=== PATIENT | male | born 1965 | race Caucasian/White ===

== ENCOUNTER 2020-09-06 11:03 | Emergency (ER) | payer OTHER, SELFPAY ==
[2020-09-06 11:04] VITALS: BP 202/141; PULSE 118; RESP 18; TEMP 36.6; O2SAT 95; BMI 37.6
[2020-09-06 11:30] VITALS: BP 158/85; PULSE 102; RESP 18; O2SAT 94
[2020-09-06 12:07] LABS: Glucose Urine UA 2+ (Normal); Protein Urine 1+ (Negative); Urine Appearance SL Hazy (CLEAR); Urine Color Yellow (Yellow); pH Urine 5 (5-7)
[2020-09-06 12:08] LABS: Add Urine Culture? Yes; Add Urine Microscopic? YES; Bacteria Urine 1+ /hpf; Bilirubin Urine Neg (Negative); Blood Urine 3+ (Negative); Ketones Urine Negative (Negative); Leukocyte Esterase Urine 2+ (Negative); Nitrate Urine Negative (Negative); Squamous Epithelial Cell Urine 0-4 /hpf (0-5); Urobilinogen Urine 1 mg/dL (Negative); WBC Urine >100 /hpf (0-5)
[2020-09-06] MEDS: ondansetron 2 mg/ML SDV 2 mL 4 MG IVP (12:09)
[2020-09-06 12:10] VITALS: RESP 18; O2SAT 95
[2020-09-06] MEDS: morphine 4 mg/mL SDV 1 mL IVP (12:10)
[2020-09-06] MEDS: LORazepam 2 mg/mL INJ 1 mL 1 MG IVP (12:10)
[2020-09-06] MEDS: cefTRIAXone 1,000 MG in sodium chloride 0.9% (plus) 50 ML 100 MG IV (13:23)
[2020-09-06] MEDS: phenazopyridine 100 mg Tablet 200 MG PO (13:23)
--- NOTE | 2020-09-06 14:20 | ED_ITS ---
HPI - Male Genitourinary General: Chief complaint: Urogenital-Male Stated complaint: Trouble Peeing Time Seen by Provider: 09/06/20 11:05 History of Present Illness: HPI Narrative: This patient is a 55-year-old male who presents today with difficulty urinating. He said this has been going on since yesterday evening. The last time he was able to urinate normally was yesterday afternoon. Since then he is just been dribbling. He has to really strain to try to get the urine out and he says is quite painful to do so. As soon as he urinates and walk away from the bathroom he feels like he has to go again. He has never had anything like this before but I see that he is on Flomax as one of his medications. He also has a history of hypertension and takes amlodipine and lisinopril hydrochlorothiazide. He has not taken them today. MD Complaint: dysuria Onset (ago): hour(s) (12) Duration: constant Location: abdomen Severity: moderate Quality: aching Associated symptoms: Reports no associated symptoms; Deny nausea or vomiting Review of Systems General: Reports: 10 or more systems reviewed and unremarkable except in HPI and below Const: Denies: fever(s), chills, fatigue or malaise Eyes: Denies: change in vision ENMT: Denies: odynophagia Card: Denies: chest pain or swelling of feet/ankles Resp: Denies: dyspnea, productive cough or non-productive cough GI: Denies: abdominal pain, nausea or vomiting : Reports: difficulty urinating, urinary frequency, urinary dribbling and oliguria; Denies: flank pain Musc: Denies: neck pain or back pain Skin/Breast: Denies: rash Neuro: Denies: headache(s), numbness in extremities or weakness in extremities Bay/Lymph: Denies: easy bruising or easy bleeding Physical Exam Const: COMMON NORMALS: no acute distress, patient oriented x3, no limitations and alert GENERAL APPEARANCE: cooperative and comfortable HENMT: HEAD & SCALP: normal to inspection FACE & SINUS: normal facial exam Eye: GENERAL EYE: appearance normal, both eyes and all related structures Neck/C-Spine: COMMON NORMALS: supple, no meningeal signs and no JVD Chest: COMMONS NORMALS: normal inspection of the chest Resp: COMMON NORMALS: normal respiratory effort, No use of accessory muscles and clear to auscultation bilaterally AUSCULTATION: clear to auscultation bilaterally Cardio: COMMON NORMALS: no JVD, regular rate, regular rhythm and No murmurs present (Cardio) RATE: regular rate RHYTHM: regular rhythm GI: COMMON NORMALS: Normal to inspection, nondistended, normoactive bowel sounds present, Soft to palpation and non-tender INSPECTION: Yes normal to inspection AUSCULTATION: Yes normoactive bowel sounds PALPATION: Yes Soft to palpation and Yes Tenderness to palpation present (GI) (suprapubic) Back/Pelvis: COMMON NORMALS: thoracic and lumbar spine normal to inspection Extremity: COMMON NORMALS: normal to inspection Neuro: COMMON NORMALS: patient oriented x3, moves all extremities, no focal motor deficits and no sensory deficits noted SENSORIUM/ORIENTATION: Yes alert MENINGEAL SIGNS: Yes no meningeal signs Psych: COMMON NORMALS: mental status grossly normal, cooperative and normal affect Skin: COMMON NORMALS: no rashes or lesions noted and turgor normal GENERAL SKIN EXAM: no rashes or lesions noted and turgor normal Course ED course: Patient was in quite a bit of discomfort when he arrived. He was only able to urinate a tiny amount and a catheter was placed. About 300 mL came out over the first little bit that it was in. He does show evidence of UTI. He had high white count but I think some of this is probably a stress reaction. He did not have a fever or any other signs of sepsis or systemic infection. His blood pressure was quite high. He was given his regular medications here. Came down fairly well. As he did not have a very large amount of distention or re tention in his bladder we had the catheter removed prior to discharge. Go home on antibiotics and follow-up with Dr. Mann. Vital Signs: Vital signs: Vital Signs Temperature 97.9 F 09/06/20 11:04 Pulse Rate 105 H 09/06/20 15:37 Respiratory Rate 14 09/06/20 15:37 Blood Pressure 173/94 09/06/20 15:37 Pulse Oximetry 94 09/06/20 15:37 MDM - Male Lab Data: Labs: Lab Results 09/06/20 09/06/20 09/06/20 Range/Units 11:31 14:20 14:20 WBC 26.1 H (4.0-10.0) 10^3/ uL RBC 5.72 H (4.1-5.3) 10^6/u L Hgb 17.6 H (11.7-16.6) g/dL Hct 52.1 H (42.0-52.0) % MCV 91.1 (80-94) fL MCH 30.8 (28.0-34.0) pg MCHC 33.8 (30.0-36.0) g/dL RDW 12.6 (12.1-15.1) % Plt Count 218 (130-400) 10^3/c mm MPV 9.8 (7.4-10.4) fL Neut % (Auto) 83.6 % Lymph % (Auto) 6.4 % [place] % (Auto) 8.8 % Eos % (Auto) 0.3 % Baso % (Auto) 0.3 % Neut # (Auto) 21.83 H (1.8-7.7) 10^3/u L Lymph # (Auto) 1.7 (0.8-4.8) 10^3/u L [place] # (Auto) 2.3 H (0.2-0.9) 10^3/u L Eos # (Auto) 0.1 (0.0-0.8) 10^3/u L Baso # (Auto) 0.1 (0.0-0.1) 10^3/u L Nucleated RBC % (a uto) 0 % Nucleated RBCs # 0.0 /100WBC Sodium 135 L (136-145) mmol/L Potassium 3.7 (3.5-5.1) mmol/L Chloride 100 (98-107) mmol/L Carbon Dioxide 25 (22-29) mmol/L Anion Gap 13.7 (5-19) BUN 11 (6-20) mg/dL Creatinine 0.8 (0.7-1.2) mg/dL GFR Calculation 101.1 (90-130) mL/min Glucose 115 (65-115) mg/dL Calculated Osmolal ity 280 L (285-295) mOsm/k g Calcium 8.6 (8.5-10.5) mg/dL Total Bilirubin 1.1 (0.15-1.2) mg/dL AST 10 (0-40) U/L ALT 17 (0-41) U/L Alkaline Phosphata se 88 (40-130) IU/L Total Protein 6.8 (6.6-8.7) g/dL Albumin 3.8 (3.5-5.2) g/dL Globulin 3.0 (1.3-4.6) g/dL Urine Color Yellow (Yellow) Urine Appearance Sl hazy (CLEAR) Urine pH 5 (5-7) Ur Specific Gravit y 1.020 (1.005-1.030) Urine Protein 1+ H (Negative) Urine Glucose (UA) 2+ (Normal) Urine Ketones Negative (Negative) Urine Blood 3+ H (Negative) Urine Nitrate Negative (Negative) Urine Bilirubin Neg (Negative) Urine Urobilinogen 1 H (Negative) mg/dL Ur Leukocyte Liana ase 2+ H (Negative) Urine RBC 5-10 H (0-2) /hpf Urine WBC >100 H (0-5) /hpf Ur Squamous Epith Cells 0-4 H (0-5) /hpf Amorphous Sediment Not Reportable Urine Bacteria 1+ H (NONE) /hpf Discharge Plan Discharge Patient Disposition: Home Clinical Impression: Acute retention of urine Urinary tract infection Qualifiers: Urinary tract infection type: site unspecified Hematuria presence: with hematuria Qualified Code(s): N39.0 - Urinary tract infection, site not specified Hypertension Qualifiers: Hypertension type: essential hypertension Qualified Code(s): I10 - Essential (primary) hypertension Condition: Stable Prescriptions: New ciprofloxacin HCl 750 mg tablet 750 mg PO BID Qty: 20 RF: 0 No Action lisinopril-hydrochlorothiazide 20-12.5 mg tablet 1 tab PO DAILY RF: 0 tamsulosin 0.4 mg capsule 0.4 mg PO DAILY RF: 0 amlodipine 10 mg tablet 10 mg PO DAILY RF: 0 Discharge Orders: Discharge Order (Routine); Ordered 09/06/20 Ordered By: Katy Peterson Referrals: Isidro Mann MD [Physician] - (1 - 2 weeks, UTI, mild urinary retention) Discharge Diet: Advance as tolerated Discharge Activity: Resume usual activity Patient Instructions: Urinary Tract Infection in Men (ED) Activity Restrictions/Additional Instructions: Take your blood pressure medicine and tamsulosin for prostate enlargement. Return to the ED if fever - unable to urinate - or vomiting. 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
[2020-09-06] MEDS: hydroCHLOROthiazide 25 mg Tablet 12.5 MG PO (14:28)
[2020-09-06] MEDS: lisinopril 10 mg Tablet PO (14:28)
[2020-09-06] MEDS: amlodipine 10 mg Tablet PO (14:29)
[2020-09-06 14:31] VITALS: BP 172/106; PULSE 102; RESP 18; O2SAT 96
[2020-09-06 14:54] LABS: Basophils # 0.1 10^3/uL (0.0-0.1); Basophils % 0.3 %; Eosinophils # 0.1 10^3/uL (0.0-0.8); Eosinophils % 0.3 %; Hematocrit 52.1 % (42.0-52.0); Hemoglobin 17.6 g/dL (11.7-16.6); Lymphocytes # 1.7 10^3/uL (0.8-4.8); Lymphocytes % 6.4 %; Mean Corpuscular HGB Conc 33.8 g/dL (30.0-36.0); Mean Corpuscular Hemoglobin 30.8 pg (28.0-34.0); Mean Corpuscular Volume 91.1 fL (80-94); Mean Platelet Volume 9.8 fL (7.4-10.4); Monocytes # 2.3 10^3/uL (0.2-0.9); Monocytes % 8.8 %; Neutrophils # 21.83 10^3/uL (1.8-7.7); Neutrophils % 83.6 %; Nucleated Red Blood Cells % 0 %; Platelet Count 218 10^3/cmm (130-400); Red Blood Count 5.72 10^6/uL (4.1-5.3); Red Cell Distribution Width 12.6 % (12.1-15.1); White Blood Count 26.1 10^3/uL (4.0-10.0)
[2020-09-06 14:58] LABS: Alanine Aminotransferase 17 U/L (0-41); Albumin Level 3.8 g/dL (3.5-5.2); Alkaline Phosphatase 88 IU/L (40-130); Anion Gap 13.7 (5-19); Aspartate Amino Transferase 10 U/L (0-40); Blood Urea Nitrogen 11 mg/dL (6-20); Calcium 8.6 mg/dL (8.5-10.5); Carbon Dioxide 25 mmol/L (22-29); Chloride 100 mmol/L (98-107); Glomerular Filtration Rate 101.1 mL/min (90-130); Glucose 115 mg/dL (65-115); Osmolality Calculated 280 mOsm/kg (285-295); Potassium 3.7 mmol/L (3.5-5.1); Sodium 135 mmol/L (136-145); Total Bilirubin 1.1 mg/dL (0.15-1.2); Total Protein 6.8 g/dL (6.6-8.7)
[2020-09-06 15:37] VITALS: BP 173/94; PULSE 105; RESP 14; O2SAT 94
== END 2020-09-06 15:39 | disposition home or self-care (01) ==
PROVIDERS: Emergency Provider Emergency Medicine
DX: N39.0 Urinary tract infection, site not specified (principal); I10 Essential (primary) hypertension
CPT/HCPCS: 12345; 36415; 51702; 51798; 80053; 81001; 85025; 87077; 87086; 87186; 96365; 96375; 99282; 99283; J0696; J2060; J2270; J2405